=== PATIENT | male | born 1985 | race Two or more races ===

== ENCOUNTER 2025-01-30 09:31 | Emergency (ER) | payer MEDICAID, OTHER ==
[~2025-01-30] VITALS: Ht 172.7 cm; Wt 59.4 kg
[2025-01-30 10:11] VITALS: BP 140/66; PULSE 100; RESP 18; TEMP 98.1; O2SAT 99
[2025-01-30 12:08] LABS: Basophils # (auto) 0 10 ^3/uL (0-0.2); Basophils % (auto) 0.6 % (0.0-2.0); Eosinophils # (auto) 0 10 ^3/uL (0-0.8); Eosinophils % (auto) 0.6 % (0.0-7.0); Hematocrit 40.9 % (41.0-53.0); Hemoglobin 13.8 g/dL (13.5-17.5); Lymphocytes # (auto) 1.4 10 ^3/uL (0.4-5.4); Lymphocytes % (auto) 24.6 % (10.0-50.0); Mean Corpuscular Hemoglobin 32.1 pg (28.0-32.0); Mean Corpuscular Hgb Conc. 33.8 g/dL (32.0-36.0); Monocytes # (auto) 0.5 10 ^3/uL (0-1.3); Monocytes % (auto) 9.5 % (0.0-12.0); Neutrophils # (auto) 3.6 10 ^3/uL (1.6-8.6); Neutrophils % (auto) 64.7 % (37.0-80.0); Nucleated Red Blood Cells % 0.1 %; Platelet Count (auto) 239 10^3/uL (140-450); Red Blood Cells 4.31 10^6/uL (4.5-5.90); Red Cell Distribution Width 14.2 % (11.8-14.3); White Blood Cell 5.6 10^3/uL (4.4-10.8)
[2025-01-30 12:18] LABS: Potassium 4.4 mmol/L (3.5-5.1); Sodium 140 mmol/L (136-145)
[2025-01-30 12:19] LABS: Anion Gap 6 (5-15); Calcium 9.8 mg/dL (8.7-10.4); Carbon Dioxide 25 mmol/L (20-31)
[2025-01-30 12:20] LABS: Chloride 109 mmol/L (98-107)
[2025-01-30 12:24] LABS: BUN/Creatinine Ratio 8.5 (10.0-20.0); Blood Urea Nitrogen 9 mg/dL (9-23); Glucose 87 mg/dL (74-106)
[2025-01-30] MEDS ORDERED: DOXY-286 PO (12:47)
[2025-01-30] MEDS ORDERED: NAP500T PO (12:47)
--- NOTE | 2025-01-30 12:48 | ED.PDOC ---
Musculoskeletal HPI Comments 39-year-old male with a MHx presents for left foot swelling predominantly at the 2nd toe. Started five days ago also complains of pain with ambulation. The patient is still able to ambulate without assistive devices. Denies previous injury. Denies any fevers chills nausea vomiting diarrhea. Denies any warmth or restrictions in the range of motion. Chief Complaint: Lower Extremity Time Seen by MD: 09:48 Reviewed Notes: Nurses Notes, Medications, Allergies Home Meds Active Scripts Naproxen (NAPROSYN TABLET) 500 Mg Tb, 1 TAB PO BIDPC for 10 Days, #20 TAB 0 Refills Prov:PATRICIA BELTRAN MANAGER IMAGE 01/30/25 Doxycycline Hyclate (DOXYCYCLINE HYCLATE) 100 Mg Tab, 1 TAB PO BID for 7 Days, #14 TAB 0 Refills Prov:PATRICIA BELTRAN MANAGER IMAGE 01/30/25 Information Source: Patient Mode of Arrival: Ambulatory Past Medical History PAST MEDICAL HISTORY: Denies Surgical History: Denies all surgeries Family History Family History: Reviewed,noncontributory to illness Social History Smoker: Non-Smoker Alcohol: Denies ETOH Use Drugs: Denies Drug Use All Other Systems: Reviewed and Negative (Per HPI) Physical Exam General Appearance: No Apparent Distress, Normal HEENT: Normal ENT Inspection, Pharynx Normal, TMs Normal Neck: Full Range of Motion, Non-Tender, Normal, Normal Inspection Respiratory: Chest Non-Tender, Lungs Clear, No Accessory Muscle Use, No Respiratory Distress, Normal Breath Sounds Cardiovascular: Normal Peripheral Pulses Breast Exam: Deferred Gastrointestinal: No Organomegaly, Non Tender, No Pulsatile Mass, Normal Bowel Sounds, Soft Genitalia: Deferred Pelvic: Deferred Rectal: Deferred Extremities: No calf tenderness, Normal capillary refill, Normal inspection, Normal range of motion, Non-tender, No pedal edema, Other (L 2nd phalanx: Relayed dermatitis. No erythema no warmth. No TTP. Full ROM) Musculoskeletal : Apperance: Normal Neurologic: Alert, grants specialist II-XII nml as Tested, No Motor Deficits, Normal Affect, Normal Mood, No Sensory Deficits Cerebellar Function: Normal Reflexes: Normal Skin: Dry, Normal Color, Warm Lymphatic: No Adenopathy Was a procedure done? Was a procedure done?: No Differential Diagnosis EXT Differential Diagnosis: Sprain X-Ray, Labs, Meds, VS Vital Signs Date Time Temp Pulse Resp B/P (MAP) Pulse Ox O2 Delivery O2 Flow Rate FiO2 01/30/25 10:11 100 18 99 Room Air 01/30/25 10:11 98.1 100 18 140/66 (90) 99 98.1 01/30/25 09:48 98.1 100 18 140/66 (90) 99 98.1 Lab Test 01/30/25 11:56 Range/Units White Blood Count 5.6 4.4-10.8 10^3/uL Red Blood Count 4.31 L 4.5-5.90 10^6/uL Hemoglobin 13.8 13.5-17.5 g/dL Hematocrit 40.9 L 41.0-53.0 % Mean Corpuscular Volume 95.0 80.0-100.0 fL Mean Corpuscular Hemoglobin 32.1 H 28.0-32.0 pg Mean Corpuscular Hemoglobin Concent 33.8 32.0-36.0 g/dL Red Cell Distribution Width 14.2 11.8-14.3 % Platelet Count 239 140-450 10^3/uL Mean Platelet Volume 7.1 6.9-10.8 fL Neutrophils (%) (Auto) 64.7 37.0-80.0 % Lymphocytes (%) (Auto) 24.6 10.0-50.0 % Monocytes (%) (Auto) 9.5 0.0-12.0 % Eosinophils (%) (Auto) 0.6 0.0-7.0 % Basophils (%) (Auto) 0.6 0.0-2.0 % Neutrophils # (Auto) 3.6 1.6-8.6 10 ^3/uL Lymphocytes # (Auto) 1.4 0.4-5.4 10 ^3/uL Monocytes # (Auto) 0.5 0-1.3 10 ^3/uL Eosinophils # (Auto) 0 0-0.8 10 ^3/uL Basophils # (Auto) 0 0-0.2 10 ^3/uL Nucleated Red Blood Cells 0.1 % Sodium Level 140 136-145 mmol/L Potassium Level 4.4 3.5-5.1 mmol/L Chloride Level 109 H 98-107 mmol/L Carbon Dioxide Level 25 20-31 mmol/L Anion Gap 6 5-15 Blood Urea Nitrogen 9 9-23 mg/dL Creatinine 1.06 0.700-1.30 mg/dL Glomerular Filtration Rate Calc 91 >90 mL/min BUN/Creatinine Ratio 8.5 L 10.0-20.0 Serum Glucose 87 74-106 mg/dL Calcium Level 9.8 8.7-10.4 mg/dL X-Ray, Labs, Meds, VS Comment Empiric treatment Patient is stable for discharge at this time. External notes reviewed. Test results and diagnostic imaging interpreted. All diagnostic findings, discharge care, education and instructions provided Follow-up with PCP in 2 to 3 days Patient verbalized understanding and agreed to treatment plan Vital signs stable, afebrile, no acute distress noted Patient ambulatory with strong steady gait Advised to return precautions for any new or worsening symptoms, return to ER immediately for re-evaluation Patient is aware that the purpose of this visit was for an acute medical kali gency requiring emergent stabilization. Chronic conditions, including malignancies have not been ruled out. Patient is instructed to follow up with PCP as directed and discharge instructions for continued care and workup. If unable to arrange follow-up, patient is to return to the emergency department for reassessment. Patient (parent or legal guardian if applicable) was given v erbal and written discharge instructions and acknowledges understanding. Time of 1ST Reevaluation: 12:30 Reevaluation 1ST: Improved Patient Education/Counseling: Diagnosis, Treatment Family Education/Counseling: Diagnosis, Treatment Departure 1 Departure Time of Disposition: 12:45 Impression: Primary Impression: Foot swelling Disposition: HOME / SELF CARE / HOMELESS Condition: Stable e-Prescriptions Naproxen (NAPROSYN TABLET) 500 Mg Tb 1 TAB PO BIDPC for 10 Days, #20 TAB 0 Refills Prov: PATRICIA BELTRAN NP 01/30/25 Doxycycline Hyclate (DOXYCYCLINE HYCLATE) 100 Mg Tab 1 TAB PO BID for 7 Days, #14 TAB 0 Refills Prov: PATRICIA BELTRAN MANAGER IMAGE 01/30/25 Critical Care Note Critical Care Time?: No Stability Stability form required: No Heart Score Heart Score: Heart Score Response (Comments) Value History N/A 0 EKG N/A 0 Age N/A 0 Risk Factors N/A 0 Troponin N/A 0 Total 0 PATRICIA BELTRAN NP Jan 30, 2025 12:48
== END 2025-01-30 12:48 | disposition home or self-care (01) ==
LOC: ER 09:32
DX: R22.42 Localized swelling, mass and lump, left lower limb (principal); M79.89 Other specified soft tissue disorders
CPT/HCPCS: 36415; 80048; 85025